=== PATIENT | female | born 1960 | race Caucasian/White ===

== ENCOUNTER 2022-03-29 18:55 | Emergency (ER) | payer SELFPAY ==
[~2022-03-29] VITALS: Ht 175.3 cm; Wt 80.0 kg
[2022-03-29 21:04] VITALS: BP 134/72
== END 2022-03-29 21:09 | disposition home or self-care (01) ==
LOC: ER 18:56
DX: S00.212A Abrasion of left eyelid and periocular area, initial encounter (principal); Z72.89 Other problems related to lifestyle; W19.XXXA Unspecified fall, initial encounter; Y93.89 Activity, other specified; Y92.89 Other specified places as the place of occurrence of the external cause; Y99.8 Other external cause status
CPT/HCPCS: 70450; 99284